=== PATIENT | female | born 1945 | race Caucasian/White ===

== ENCOUNTER → 2016-11-04 | Outpatient (CLI) | payer MEDICARE | LOC: EXRD 10:10 | DX: R07.9 Chest pain, unspecified (principal) | CPT/HCPCS: 71020 ==

== ENCOUNTER → 2021-02-26 | Outpatient (CLI) | payer MEDICARE ==
[~2021-02-26] MED LIST: ALENDRONATE SOD35 MG PO; ANTIVERT 25MG T25 MG PO; ARICEPT10 MG PO; FOLIC ACID0.4 MG PO; IMDUR ER TAB 3030 MG PO; K-DUR TAB 10 M10 MEQ PO; NAMENDA10 MG PO; TENORMIN 50 MG50 MG PO; THERAGRAN M TAB1 EA PO; ULTRAM50 MG PO; VITAMIN B-122500 MCG SL; VITAMIN D5000 UNIT PO; ZOCOR20 MG PO
== END ==
LOC: KOH-I 14:17
DX: F03.90 Unspecified dementia, unspecified severity, without behavioral disturbance, psychotic disturbance, mood disturbance, and anxiety (principal); G31.9 Degenerative disease of nervous system, unspecified; R93.0 Abnormal findings on diagnostic imaging of skull and head, not elsewhere classified
CPT/HCPCS: 70450